=== PATIENT | female | born 2000 | race Caucasian/White ===

== ENCOUNTER 2018-02-22 05:19 | Emergency (ER) | payer OTHER ==
[~2018-02-22] VITALS: Ht 172.7 cm; Wt 115.5 kg
[2018-02-22] MEDS ORDERED: LARIN FE 1.5-31 EACH PO (05:25)
[2018-02-22] MEDS ORDERED: CLARITIN10 MG PO (05:26)
[2018-02-22] MEDS ORDERED: PROZAC 10 MG CA10 MG PO (05:26)
[2018-02-22] MEDS ORDERED: MINOCIN100 MG PO (05:26)
[2018-02-22 06:53] VITALS: BP 139/72
== END 2018-02-22 06:53 | disposition home or self-care (01) ==
LOC: M.ERS 05:19
DX: S00.83XA Contusion of other part of head, initial encounter (principal); T22.10XA Burn of first degree of shoulder and upper limb, except wrist and hand, unspecified site, initial encounter; W01.0XXA Fall on same level from slipping, tripping and stumbling without subsequent striking against object, initial encounter; Y93.89 Activity, other specified; Y92.89 Other specified places as the place of occurrence of the external cause; Y99.0 Civilian activity done for income or pay